=== PATIENT | female | born 1945 | race Caucasian/White ===

== ENCOUNTER 2017-08-13 09:56 | Day surgery (SDC) | payer MEDICARE, OTHER, BC ==
[~2017-08-13 09:56] MED LIST: ACETAMINOPHEN 1,000 MG/100 ML BTL IV ONE; CLINDAMYCIN PHOS/D5W 900MG 900 MG/50 ML BAG IVPB ONE
[2017-08-13] MEDS ORDERED: PROPOFOL 10 MG/ML VIAL IV ONE (09:57)
[2017-08-13] MEDS ORDERED: KETOROLAC 30 MG/ML VIAL IVP ONE (09:57)
[2017-08-13] MEDS ORDERED: SEVOFLURANE 250 ML INH ONE (09:57)
[2017-08-13] MEDS ORDERED: LIDOCAINE 2% MDV (20MG/ML) 20ML VIAL IV ONE (09:57)
[2017-08-13] MEDS ORDERED: MIDAZOLAM HCL 2MG/2ML VIAL IV ONE (09:57)
[2017-08-13] MEDS ORDERED: FENTANYL PF 100MCG/2ML VIAL IV ONE (09:57)
[2017-08-13] MEDS ORDERED: ONDANSETRON HCL IV 4 MG/2 ML VIAL IVP ONE (09:57)
[2017-08-13] MEDS ORDERED: BUPIVACAINE 0.5% W/EPI MPF 30 ML VIAL IVP ONE (09:57)
[2017-08-13] MEDS ORDERED: EPHEDRINE SULFATE 50 MG/ML ML IV ONE (09:57)
--- NOTE | 2017-08-14 07:35 | Operative Note ---
DATE: 08/13/2017. PREOPERATIVE DIAGNOSIS: INTERNAL DERANGEMENT OF THE LEFT KNEE. POSTOPERATIVE DIAGNOSES: 1. 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 2. GRADE 3 CHONDROMALACIA OF THE NOTCH. 3. PINHOLE TEAR OF THE POSTERIOR HORN OF THE MEDIAL MENISCUS. 4. GRADE 3 CHONDROMALACIA OF THE MEDIAL FEMORAL CONDYLE, LATERAL ASPECT, FROM ABOUT 45 TO 90 DEGREES. 5. DEGENERATIVE FRINGE TEAR INVOLVING THE POSTERIOR AND LATERAL HORN OF THE LATERAL MENISCUS. PROCEDURES: 1. Left knee arthroscopy with partial lateral meniscectomy. 2. Left knee arthroscopy with chondroplasty of the patella notch and medial femoral condyle. STAFF SURGEON: Norm Do M.D. ANESTHESIA: General. PREPARATION: ChloraPrep. INDIVIDUAL CONSIDERATIONS: None. PROCEDURE: The patient was taken to the operating room and placed supine on the operating table. She had successful induction of a general anesthetic. Her left lower extremity was prepped and draped in the usual fashion. The patient had a superolateral inflow cannula placed. The skin had been infiltrated with 0.5% Marcaine with epinephrine prior. The knee was then inflated with normal saline. An inferomedial and an inferolateral portal were made in a similar fashion. The arthroscope was introduced through the inferolateral portal up into the pouch. The patellofemoral joint showed almost grade 4 change in the patella, primarily in the lateral facet with some loose marginal cartilage. This was smoothed with a shaver. Surprisingly there was minimal synovitis in both gutters and the pouch. The floating debris was irrigated out. There was some moderate grade 3 change in the notch which was smoothed medially. She had grade 3 change on the lateral aspect of the medial femoral condyle from 45 to 90 degrees just lateral to the midline. This was smoothed with a shaver. The meniscus looked normal, but on further probing she basically had a tiny pinhole tear that would only accommodate my probe underneath. It was clearly through and was clearly a tear. I entertained fixing it, but frankly I thought I would do more damage to the meniscus trying to fix this pinhole tear than just leaving it alone. I debrided the area and hope that it may heal. Again, I did entertain performing a fixation, but I thought the sutures would probably cause larger holes than the tear. In the notch the cruciates were normal. Laterally she had a degenerative flap tear involving the posterolateral and extending into the lateral horn of the lateral meniscus. I was able to debride this back to a stable rim. The articular cartilage had soft change but nothing to debride. The popliteus tendon was normal. The knee was then irrigated out with saline to remove loose floating debris. The portals were closed with mario, and 30 mL of 0.25% plain Marcaine along with 5.0 mg of morphine and 40 mg of Depo Medrol were injected into the knee. A sterile bulky compressive dressing was applied. The patient tolerated the procedure well. Needle and sponge counts were correct. Estimated blood loss was minimal. She was taken back to the Recovery in good condition. There were no complications. Job Number: [id number] MTDD
== END 2017-08-13 14:45 | disposition home or self-care (01) ==
LOC: SUR 09:56
PROVIDERS: ATTEND Orthopaedic Surgery
DX: S83.282A Other tear of lateral meniscus, current injury, left knee, initial encounter (principal); M22.42 Chondromalacia patellae, left knee; M94.262 Chondromalacia, left knee
CPT/HCPCS: 29881; 01400; 93005; J1885; J2405; J3010; J3490